=== PATIENT | male | born 1995 | race Caucasian/White ===

== ENCOUNTER 2022-02-18 07:36 | Emergency (ER) | payer OTHER, BC ==
[~2022-02-18] VITALS: Ht 182.9 cm; Wt 117.9 kg
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
[2022-02-18] MEDS ORDERED: LIDOCAINE/EPI 2% 1:100,00 (XYLOCAINE) 20 ML VIAL INJ ONE (08:00)
[2022-02-18] MEDS ORDERED: LIDOCAINE/EPI 2% 1:200,00 (XYLOCAINE) 20 ML VIAL ONE (08:01)
[2022-02-18] MEDS ORDERED: LIDOCAINE 1% INJ 50 ML (XYLOCAINE) VIAL ONE (08:03)
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
[2022-02-18] MEDS ORDERED: ACHD5005 PO (08:30)
[2022-02-18 08:40] VITALS: BP 127/76
== END 2022-02-18 08:40 | disposition home or self-care (01) ==
LOC: ER FS 07:44
DX: S01.80XA Unspecified open wound of other part of head, initial encounter (principal); S89.91XA Unspecified injury of right lower leg, initial encounter; Z28.310 Unvaccinated for COVID-19; V40.5XXA Car driver injured in collision with pedestrian or animal in traffic accident, initial encounter; Y92.410 Unspecified street and highway as the place of occurrence of the external cause
CPT/HCPCS: 70450; 73562